=== PATIENT | female | born 2000 ===

== ENCOUNTER 2021-09-11 14:46 | Emergency (ER) | payer OTHER, SELFPAY ==
[2021-09-11 14:49] VITALS: BP 138/96; PULSE 110; RESP 29; TEMP 36.4; O2SAT 100
[2021-09-11] MEDS: HYDROmorphone HCL INJ (*CRX) 1 MG/ML SYR IM (15:39)
[2021-09-11] MEDS: ONDANSETRON HCL ODT 4 MG TABLET PO (15:39)
--- NOTE | 2021-09-11 16:30 | ED.FEMALEGU ---
HPI - Female Genitourinary General Chief complaint: TRADING ASSISTANT Stated complaint: BOIL Time Seen by Provider: 09/11/21 15:06 Source: patient Mode of arrival: ambulatory Limitations: no limitations History of Present Illness HPI Narrative: 21 years old -[place] female presents to the ED complaining of large mass at the left vaginal lip started 2 days ago. History of parchment cyst. Patient denies any trauma, fever, chills, nausea, vomiting. Related Data Allergies Allergy/AdvReac Type Severity Reaction Status Date / Time aspirin Allergy Anaphylactic Verified 09/11/21 14:52 Shock codeine Allergy Hives Verified 09/11/21 14:52 Review of Systems Review of Systems: All systems reviewed & are unremarkable except as noted in HPI and below Exam Narrative: General appearance: Well-developed, well-nourished Skin: Normal color Chest and respiratory: Airway patent, no respiratory distress, no accessory muscle use Heart: Regular rate/rhythm Abdomen: Soft, nontender, no organomegaly, quiet bowel sounds Vascular: Normal peripheral pulses, normal capillary refill. Neurologic: Alert and oriented ?3, : Other: Large Bartholin abscess at the left labia minora on the inner side. Red, diffusely tender, no discharge Course Vital Signs Vital signs: Vital Signs Temperature 36.4 C 09/11/21 14:49 Pulse Rate 110 H 09/11/21 14:49 Respiratory Rate 29 H 09/11/21 14:49 Blood Pressure 138/96 H 09/11/21 14:49 Pulse Oximetry 100 09/11/21 14:49 Oxygen Delivery Room Air 09/11/21 14:49 Temperature 36.4 C 09/11/21 14:49 Pulse Rate 88 09/11/21 16:55 Respiratory Rate 16 09/11/21 16:55 Blood Pressure 128/86 09/11/21 16:55 Pulse Oximetry 98 09/11/21 16:55 Oxygen Delivery Room Air 09/11/21 14:49 Procedures Abscess I/D bartholin's gland: Date of Incision: 09/11/21 Time of Incision: 17:12 Side (if applicable): left Sedation/analgesia: none Local Anesthetic: lidocaine 1% and with epi Amount of anesthesia used (mL): 4 Technique: incised with #11 blade and probed loculations Amount of fluid expressed (mL): 30 Irrigation: No Packing used?: Word catheter I&D Results: Pus Complications: pain MDM - Female Genitourinary Differential Diagnosis Differential diagnosis: Likely cyst of Bartholin's gland Critical Care Time Critical Care Time Critical Care Time: Yes Total Critical Care Time: 30 Discharge Plan Discharge Clinical Impression: Abscess of Bartholin's gland Patient Disposition: Home, Self-Care Condition: Improved Instructions: Antibiotic Form, Bartholin Cyst (ED) Additional Instructions: Return if symptoms are worsening , take Tylenol as as needed for aches and pain, continue home medications. Keep the catheter for 4-6weeks, call ACCOUNT RESOLUTION SPECIALIST for follow-up, Sitz warm path No vaginal intercourse until the catheter is out Prescriptions: New amoxicillin-pot clavulanate [Augmentin] 500-125 mg tablet 1 tablet PO Q12H Qty: 14 0RF clindamycin HCl 300 mg capsule 300 mg PO Q6H Qty: 28 0RF Follow-up/Referrals: Paradise Newman MD [Physician] - 09/15/21 PHYSICIAN,[employer] COLOR SCANNER OPERATOR [Primary Care Provider] -
[2021-09-11] MEDS: AZITHROMYCIN 250 MG TABLET 1000 MG PO (16:43)
[2021-09-11] MEDS: cefTRIAXone 250 MG VIAL IM (16:43)
[2021-09-11] MEDS: LIDOCAINE HCL 1% LOCAL INJ 20 ML VIAL (16:43)
[2021-09-11 16:55] VITALS: BP 128/86; PULSE 88; RESP 16; O2SAT 98
== END 2021-09-11 16:56 | disposition home or self-care (01) ==
PROVIDERS: Emergency Provider Emergency Medicine
DX: N75.1 Abscess of Bartholin's gland (principal)
CPT/HCPCS: 56420; 96372; 99284; A9270; J0696; J1170